=== PATIENT | female | born 1960 | race Caucasian/White ===

== ENCOUNTER 2017-02-02 12:57 | Emergency (ER) | payer OTHER ==
--- NOTE | 2017-02-02 13:45 | ED NURSING NOTES ---
Clinical Report - [facility] [address] [place] [address] 02/02/2017 13:05 Patient: TIGRE CROOKS TRIAGE Triage time 13:12 Feb 02 2017. Acuity: LEVEL 3. Chief Complaint: RIGHT LOWER EXTREMITY PAIN. Alert. No acute distress. MARCOS COMA SCORE: Marcos Coma Scale: 15- eyes open spontaneously (4); best verbal response- oriented x 4 (5); best motor response- obeys commands (6). --13:24 Breanna Harman R.N. 13:12 02/02/17. BP: 150/81. HR: 87. RR: 16. O2 saturation: 97%. Temp: 98.4 F. Pain level now: 06/10. --13:24 Breanna Harman R.N. Weight: 68 kg stated. Height/Length: 71 inches Per Patient. BMI: 20.9. --13:23 Breanna Harman R.N. Medications Tramadol HCL Oral. --13:16 Breanna Harman R.N. Levothyroxine Sodium Oral 137, daily. --13:17 Breanna Harman R.N. Amitriptyline HCl Oral (Tablet 150 mg) 2 tablets, at bedtime. --13:17 Breanna Harman R.N. Sertraline HCl Oral (Tablet 100 mg) 1 tablet, daily. --13:17 Breanna Harman R.N. [place] Carbonate ER Oral (Tablet Extended Release 300 mg), BID. --13:18 Breanna Harman R.N. Allergies Morphine and Related. Penicillins. --13:18 Breanna Harman R.N. Seafood. --13:18 Breanna Harman R.N. Bees. --13:18 Breanna Harman R.N. Wasps. --13:19 Breanna Harman R.N. Mushrooms. --13:19 Breanna Harman R.N. Yellow jackets. --13:19 Breanna Harman R.N. History Arrived by private vehicle. Historian: patient. Accompanied by family. No injury occurred. This occurred just prior to arrival. ( right ankle and knee pain pt states that she needs to get back to [place].). 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 PAST MEDICAL HX: Tetanus status: up-to-date. Immunizations: up-to-date. The patient is post-menopausal. Denies current . SOCIAL HX: Current some days light tobacco smoker (cigarette)- less than 1/2 a pack per day. No alcohol use or drug use. No infectious disease exposure. SELF HARM ASSESSMENT: A self harm assessment was performed. The patient answered "no" to the question "Do you have thoughts of harming or killing yourself?". FALL RISK ASSESSMENT: Fall risk assessment completed. No fall risk identified. NUTRITIONAL RISK ASSESSMENT: The nutritional risk assessment revealed no deficiencies. FUNCTIONAL ASSESSMENT: Functional assessment: no impairments noted. LEARNING NEEDS ASSESSMENT: The learning needs assessment revealed no barriers. ABUSE ASSESSMENT: Abuse assessment: The patient was asked "Do you feel safe in your home?". SKIN INTEGRITY ASSESSMENT: Skin integrity risk assessment completed. No skin integrity risk identified. --13:24 Breanna Harman R.N. PROBLEMS: Breast Cancer. Degenerative Joint Disease. Arthritis. Asthma. Hypertension. Thyroid Disease. Rizzo's Palsy. --13:21 Breanna Harman R.N. ADDITIONAL SURGERIES: Bladder Suspension. . Knee Surgery. Lumpectomy of breast. Shoulder Surgery. Spinal fusion. --13:21 Breanna Harman R.N. Interventions ID band on patient. To room. --13:24 Breanna Harman R.N. PHYSICAL ASSESSMENT Ambulatory to room. GENERAL / NEURO / PSYCH: Oriented X 4. Alert. Appears in no acute distress. EXTREMITIES: Right knee: (pain). Right ankle. Right foot. --13:25 Breanna Harman R.N. NURSING PROGRESS NOTES Patient gowned. Patient identifiers checked. Call light placed in reach. Side rails up x 1. Bed placed in lowest position. Brakes of bed on. --13:25 Breanna Harman R.N. 13:50 02/02/2017 Oxycodone-APAP (Oxycodone-Acetaminophen) PO 5/325 mg Tablets 1 tab given. Allergies verified, confirmed 5 rights and sedative warning given to the patient. --13:51 Breanna Harman R.N. DISPOSITION / DISCHARGE Departure time: 14:55 Feb 02 2017. Condition at departure: improved. No learning barriers present. Discharge instructions provided and reviewed with the patient. Reviewed referral to a primary care physician. Patient verbalized understanding. Written instructions provided in Yi. The patient was discharged home and accompanied by box shook patcher. She left the Emergency Department ambulatory and via private vehicle. Credit Operations Specialist driving. FALL RISK ASSESSMENT: Fall risk assessment completed. No fall risk identified. --14:55 Breanna Harman R.N. 14:51 02/02/17. BP: 134/81. HR: 80. RR: 16. O2 saturation: 96%. Pain level now: 06/10. --14:55 Breanna Harman R.N. Locked/Released at 02/03/2017 12:13 by Breanna Harman R.N.
--- NOTE | 2017-02-02 13:45 | ED CLINICAL REPORT ---
Clinical Report - Physicians/Mid Levels [facility] [address] [place] [address] 02/02/2017 13:05 Patient: TIGRE CROOKS Time Seen: 1323; initial patient contact, initial documentation, patient care assumed. Arrived- By private vehicle. Historian- patient. HISTORY OF PRESENT ILLNESS Chief Complaint: LOWER EXTREMITY PAIN. Severity is described as being severe. The quality is noted to be "pain" and similar to prior episodes. Modifying factors- worsened by standing and walking. Relieved by prescription medication. This started years ago and is still present. Symptoms located in the area of the right knee, right leg, right foot and left knee. The patient has not had redness. No swelling, bladder dysfunction, bowel dysfunction, sensory loss or motor loss. No difficulty walking. ( states she is from [place], [place], and here for a dental appt, but her diesel truck driver got lost, and they missed the appt, she suffers from chronic knee pain and foot pain, and she does not have her pain meds with her, and she is hurting too bad to make the drive back to [place]). Patient denies an injury. Similar symptoms previously: Chronically, as bad. Recent medical care: Not recently seen/assessed. REVIEW OF SYSTEMS No cough, chest pain, difficulty breathing or fever. All systems otherwise negative, except as recorded above. PAST HISTORY See nurses notes. ( PROBLEMS: Breast Cancer. Degenerative Joint Disease. Arthritis. Asthma. Hypertension. Thyroid Disease. Rizzo's Palsy. --13:21 Breanna Harman, R.N. ADDITIONAL SURGERIES: Bladder Suspension. . Knee Surgery. Lumpectomy of breast. Shoulder Surgery. Spinal fusion. --13:21 Breanna Harman, R.N.). SOCIAL HISTORY Light tobacco smoker. No alcohol use or drug use. No recent travel. Visiting locally. FAMILY HISTORY Negative. ADDITIONAL NOTES The nursing notes have been reviewed with agreement regarding the chief complaint, HPI, ROS, PMH and patient medications and allergies. PHYSICAL EXAM Vital Signs: 02/02/2017 13:12 BP: 150/81. HR: 87. RR: 16. O2 saturation: 97%. Temp: 98.4 F. Pain level now: 06/10. Have been reviewed as normal and appear to be correct. Appearance: Alert. Oriented X3. No acute distress. Eyes: Pupils equal, round and reactive to light. Eyes normal inspection. Neck: Normal inspection. Neck supple. Respiratory: No respiratory distress. Skin: Skin intact. Skin warm and dry. Normal skin color. Normal skin turgor. Extremities: Lower extremities exhibit normal ROM. No lower extremity edema. Extremities otherwise negative. Gait: Abnormal gait. Gait not tested due to pain. Neuro: Oriented X 3. No motor deficit. No sensory deficit. PROGRESS AND PROCEDURES Course of Care: pt has barron for frequent narcs, last rx 01/18 tramadol #240, see report for full details. Patient counseled in person regarding the patient's stable condition and diagnosis. Differential Diagnosis: I considered fracture, stress fracture, aseptic necrosis, degenerative joint disease, rheumatoid arthritis, gout, pseudogout, myositis, fasciitis, tendonitis and bursitis as a possible cause of lower extremity pain in this patient. This is a partial list of diagnoses considered. (substance abuse). Above considerations are based on history and physical exam. Differential diagnosis was discussed with patient. Disposition: Discharged home in good and improved condition (13:45). Condition: good and stable. CLINICAL IMPRESSION Chronic right knee, ankle and foot pain. INSTRUCTIONS Warnings: GENERAL WARNINGS: Return or contact your physician immediately if your condition worsens or changes unexpectedly, if not improving as expected, or if other problems arise. Specifically return if problem worsens. Follow-up: Follow up with your doctor in about one week as needed. Call for an appointment. Summary of care provided to patient. Understanding of the discharge instructions verbalized by patient. (Electronically signed by Inna Castro A.R.N.P. 02/02/2017 15:05)
--- NOTE | 2017-02-02 13:45 | ED ORDER SUMMARY ---
..... Patient: TIGRE CROOKS OrderSheet [facility] VisitID: [id number] [address] [place] [address] 56y, F Registration Date/Time: 02/02/2017 ORDER SHEET Weight: 68.0 kg (stated) Allergies: Morphine and Related, Penicillins, Seafood, Bees, Wasps, Mushrooms, Yellow jackets GENERAL ORDERS: MEDICATION ORDERS: Oxycodone-APAP PO 5/325 mg (HIGH ALERT MEDICATION, NOW) (13:45 02/02/2017 MICHAELAivens A.R.N.P.) (13:51 Michael Brownlee.N.) IV FLUIDS: ORDER SHEET NOTES: [Electronically signed by Inna Castro A.R.N.PTorrie (15:05 02/02/2017)] [Electronically signed by Breanna Harman R.N. (12:13 02/03/2017)] [Electronically locked/signed by Breanna Harman R.N. (12:13 02/03/2017)]
--- NOTE | 2017-02-02 13:45 | ED ORDER SUMMARY ---
..... Patient: TIGRE CROOKS OrderSheet [facility] VisitID: [id number] [address] [place] [address] 56y, F Registration Date/Time: 02/02/2017 ORDER SHEET Weight: 68.0 kg (stated) Allergies: Morphine and Related, Penicillins, Seafood, Bees, Wasps, Mushrooms, Yellow jackets GENERAL ORDERS: MEDICATION ORDERS: Oxycodone-APAP PO 5/325 mg (HIGH ALERT MEDICATION, NOW) (13:45 02/02/2017 MICHAELAivens A.R.N.P.) (13:51 Michael Brownlee.N.) IV FLUIDS: ORDER SHEET NOTES: [Electronically signed by Inna Castro A.R.N.PTorrie (15:05 02/02/2017)] [Electronically signed by Breanna Harman R.N. (12:13 02/03/2017)] [Electronically locked/signed by Breanna Harman R.N. (12:13 02/03/2017)]
--- NOTE | 2017-02-02 13:45 | ED CLINICAL REPORT ---
Clinical Report - Physicians/Mid Levels [facility] [address] [place] [address] 02/02/2017 13:05 Patient: TIGRE CROOKS Time Seen: 1323; initial patient contact, initial documentation, patient care assumed. Arrived- By private vehicle. Historian- patient. HISTORY OF PRESENT ILLNESS Chief Complaint: LOWER EXTREMITY PAIN. Severity is described as being severe. The quality is noted to be "pain" and similar to prior episodes. Modifying factors- worsened by standing and walking. Relieved by prescription medication. This started years ago and is still present. Symptoms located in the area of the right knee, right leg, right foot and left knee. The patient has not had redness. No swelling, bladder dysfunction, bowel dysfunction, sensory loss or motor loss. No difficulty walking. ( states she is from [place], [place], and here for a dental appt, but her security patrol driver got lost, and they missed the appt, she suffers from chronic knee pain and foot pain, and she does not have her pain meds with her, and she is hurting too bad to make the drive back to [place]). Patient denies an injury. Similar symptoms previously: Chronically, as bad. Recent medical care: Not recently seen/assessed. REVIEW OF SYSTEMS No cough, chest pain, difficulty breathing or fever. All systems otherwise negative, except as recorded above. PAST HISTORY See nurses notes. ( PROBLEMS: Breast Cancer. Degenerative Joint Disease. Arthritis. Asthma. Hypertension. Thyroid Disease. Rizzo's Palsy. --13:21 Breanna Harman, R.N. ADDITIONAL SURGERIES: Bladder Suspension. . Knee Surgery. Lumpectomy of breast. Shoulder Surgery. Spinal fusion. --13:21 Breanna Harman, R.N.). SOCIAL HISTORY Light tobacco smoker. No alcohol use or drug use. No recent travel. Visiting locally. FAMILY HISTORY Negative. ADDITIONAL NOTES The nursing notes have been reviewed with agreement regarding the chief complaint, HPI, ROS, PMH and patient medications and allergies. PHYSICAL EXAM Vital Signs: 02/02/2017 13:12 BP: 150/81. HR: 87. RR: 16. O2 saturation: 97%. Temp: 98.4 F. Pain level now: 06/10. Have been reviewed as normal and appear to be correct. Appearance: Alert. Oriented X3. No acute distress. Eyes: Pupils equal, round and reactive to light. Eyes normal inspection. Neck: Normal inspection. Neck supple. Respiratory: No respiratory distress. Skin: Skin intact. Skin warm and dry. Normal skin color. Normal skin turgor. Extremities: Lower extremities exhibit normal ROM. No lower extremity edema. Extremities otherwise negative. Gait: Abnormal gait. Gait not tested due to pain. Neuro: Oriented X 3. No motor deficit. No sensory deficit. PROGRESS AND PROCEDURES Course of Care: pt has barron for frequent narcs, last rx 01/18 tramadol #240, see report for full details. Patient counseled in person regarding the patient's stable condition and diagnosis. Differential Diagnosis: I considered fracture, stress fracture, aseptic necrosis, degenerative joint disease, rheumatoid arthritis, gout, pseudogout, myositis, fasciitis, tendonitis and bursitis as a possible cause of lower extremity pain in this patient. This is a partial list of diagnoses considered. (substance abuse). Above considerations are based on history and physical exam. Differential diagnosis was discussed with patient. Disposition: Discharged home in good and improved condition (13:45). Condition: good and stable. CLINICAL IMPRESSION Chronic right knee, ankle and foot pain. INSTRUCTIONS Warnings: GENERAL WARNINGS: Return or contact your physician immediately if your condition worsens or changes unexpectedly, if not improving as expected, or if other problems arise. Specifically return if problem worsens. Follow-up: Follow up with your doctor in about one week as needed. Call for an appointment. Summary of care provided to patient. Understanding of the discharge instructions verbalized by patient. (Electronically signed by Inna Castro A.R.N.P. 02/02/2017 15:05)
--- NOTE | 2017-02-02 13:45 | ED NURSING NOTES ---
Clinical Report - Nurses [facility] [address] [place] [address] 02/02/2017 13:05 Patient: TIGRE CROOKS TRIAGE Triage time 13:12 Feb 02 2017. Acuity: LEVEL 3. Chief Complaint: RIGHT LOWER EXTREMITY PAIN. Alert. No acute distress. MARCOS COMA SCORE: Marcos Coma Scale: 15- eyes open spontaneously (4); best verbal response- oriented x 4 (5); best motor response- obeys commands (6). --13:24 Breanna Harman R.N. 13:12 02/02/17. BP: 150/81. HR: 87. RR: 16. O2 saturation: 97%. Temp: 98.4 F. Pain level now: 06/10. --13:24 Breanna Harman R.N. Weight: 68 kg stated. Height/Length: 71 inches Per Patient. BMI: 20.9. --13:23 Breanna Harman R.N. Medications Tramadol HCL Oral. --13:16 Breanna Harman R.N. Levothyroxine Sodium Oral 137, daily. --13:17 Breanna Harman R.N. Amitriptyline HCl Oral (Tablet 150 mg) 2 tablets, at bedtime. --13:17 Breanna Harman R.N. Sertraline HCl Oral (Tablet 100 mg) 1 tablet, daily. --13:17 Breanna Harman R.N. [place] Carbonate ER Oral (Tablet Extended Release 300 mg), BID. --13:18 Breanna Harman R.N. Allergies Morphine and Related. Penicillins. --13:18 Breanna Harman R.N. Seafood. --13:18 Breanna Harman R.N. Bees. --13:18 Breanna Harman R.N. Wasps. --13:19 Breanna Harman R.N. Mushrooms. --13:19 Breanna Harman R.N. Yellow jackets. --13:19 Breanna Harman R.N. History Arrived by private vehicle. Historian: patient. Accompanied by family. No injury occurred. This occurred just prior to arrival. ( right ankle and knee pain pt states that she needs to get back to [place].). 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 PAST MEDICAL HX: Tetanus status: up-to-date. Immunizations: up-to-date. The patient is post-menopausal. Denies current . SOCIAL HX: Current some days light tobacco smoker (cigarette)- less than 1/2 a pack per day. No alcohol use or drug use. No infectious disease exposure. SELF HARM ASSESSMENT: A self harm assessment was performed. The patient answered "no" to the question "Do you have thoughts of harming or killing yourself?". FALL RISK ASSESSMENT: Fall risk assessment completed. No fall risk identified. NUTRITIONAL RISK ASSESSMENT: The nutritional risk assessment revealed no deficiencies. FUNCTIONAL ASSESSMENT: Functional assessment: no impairments noted. LEARNING NEEDS ASSESSMENT: The learning needs assessment revealed no barriers. ABUSE ASSESSMENT: Abuse assessment: The patient was asked "Do you feel safe in your home?". SKIN INTEGRITY ASSESSMENT: Skin integrity risk assessment completed. No skin integrity risk identified. --13:24 Breanna Harman R.N. PROBLEMS: Breast Cancer. Degenerative Joint Disease. Arthritis. Asthma. Hypertension. Thyroid Disease. Rizzo's Palsy. --13:21 Breanna Harman R.N. ADDITIONAL SURGERIES: Bladder Suspension. . Knee Surgery. Lumpectomy of breast. Shoulder Surgery. Spinal fusion. --13:21 Breanna Harman R.N. Interventions ID band on patient. To room. --13:24 Breanna Harman R.N. PHYSICAL ASSESSMENT Ambulatory to room. GENERAL / NEURO / PSYCH: Oriented X 4. Alert. Appears in no acute distress. EXTREMITIES: Right knee: (pain). Right ankle. Right foot. --13:25 Breanna Harman R.N. NURSING PROGRESS NOTES Patient gowned. Patient identifiers checked. Call light placed in reach. Side rails up x 1. Bed placed in lowest position. Brakes of bed on. --13:25 Breanna Harman R.N. 13:50 02/02/2017 Oxycodone-APAP (Oxycodone-Acetaminophen) PO 5/325 mg Tablets 1 tab given. Allergies verified, confirmed 5 rights and sedative warning given to the patient. --13:51 Breanna Harman R.N. DISPOSITION / DISCHARGE Departure time: 14:55 Feb 02 2017. Condition at departure: improved. No learning barriers present. Discharge instructions provided and reviewed with the patient. Reviewed referral to a primary care physician. Patient verbalized understanding. Written instructions provided in Faroese. The patient was discharged home and accompanied by employment office clerk. She left the Emergency Department ambulatory and via private vehicle. Manuscripts Curator driving. FALL RISK ASSESSMENT: Fall risk assessment completed. No fall risk identified. --14:55 Breanna Harman R.N. 14:51 02/02/17. BP: 134/81. HR: 80. RR: 16. O2 saturation: 96%. Pain level now: 06/10. --14:55 Breanna Harman R.N. Locked/Released at 02/03/2017 12:13 by Breanna Harman R.N.
--- NOTE | 2017-02-03 12:13 | ED DISCHARGE INSTRUCTIONS ---
Patient: TIGRE CROOKS General Instructions [facility] VisitID: [id number] [place] [address] 56y, F Registration Date/Time: 02/02/2017 Chronic right knee, ankle and foot pain. INSTRUCTIONS Warnings: GENERAL WARNINGS: Return or contact your physician immediately if your condition worsens or changes unexpectedly, if not improving as expected, or if other problems arise. Specifically return if problem worsens. Follow-up: Follow up with your doctor in about one week as needed. Call for an appointment. Summary of care provided to patient. Understanding of the discharge instructions verbalized by patient. ADDITIONAL INFORMATION Myofascial Pain Syndrome: Fibrositis Your pain is caused by a state of chronic muscle tension. This condition is called by various names: myofascial pain, fibrositis and trigger point pain. This can also be due to mechanical stress (such as working at a computer terminal for long periods; or work that requires repetitive motions of the arms or hands) or emotional stress (such as problems on the job or in your personal life). Sometimes there is no obvious cause. The pain can occur in the area of the muscle spasm or at a site distant to it. For example, spasm of a neck muscle can cause headache. Spasm of the muscle near the shoulder blade can cause pain shooting down the arm. Home Care: Try to identify the factors that may be causing your problem and change them: If you feel thatemotional stressis a cause of your pain, learn methods to deal more effectively with the stress in your life. These may include regular exercise, muscle relaxation techniques, meditation or simply taking time out for yourself. Consult your doctor or go to a local bookstore and review the many books and tapes available on the subject of stress reduction. If you feel that physical stress is a cause for your pain, try to modify any poor work habits. You may use acetaminophen (Tylenol) or ibuprofen (Motrin, Advil) to control pain, unless another medicine was prescribed. [NOTE: If you have chronic liver or kidney disease or ever had a stomach ulcer or GI bleeding, talk with your doctor before using these medicines.] The use of heat to the muscle (hot compress or heating pad) will be helpful to reduce muscle spasm. Some persons get relief with ice packs. Apply an ice pack (crushed or cubed ice in a plastic bag, wrapped in a towel) for 20 minutes at a time as needed. Use the method that feels best to you. Massaging the trigger point and stretching out the muscleare an important parts of prevention and treatment. Trigger point massage can be done by first applying heat to the area to warm and prepare the muscle. Have someone apply steady thumb pressure directly on the knot in the muscle (the most tender point) for 30 seconds. Release the pressure, then massage the surrounding muscle. Repeat the process, applying more pressure to the trigger point each time. Do this up to the limit of pain. With each treatment, the trigger point should become less tender and the pain should decrease. You can apply local pressure to trigger points in the back by lying on the floor with a tennis ball under the trigger point. Follow Up with your doctor as advised or if not improving within the next week. It may be necessary for you to receive physical therapy if you do not respond to home treatment alone. Get Prompt Medical Attention if any of the following occur: If your trigger point is in the chest muscles, observe for pain that becomes more severe, lasts longer, or spreads into your shoulder/arm, neck or back; you develop trouble breathing, sweating, nausea or vomiting in association with chest pain If you develop weakness or numbness in an extremity If your pain worsens, regardless of its location Osteoarthritis Osteoarthritis (also called Degenerative Joint Disease) is the most common form of arthritis in adults over 50. It is not the same as Rheumatoid Arthritis. The exact cause is not known but may be related to excess wear and tear on the joint over a long period of time. Prior injury to that joint, or repeated stress on a joint can also cause this type of arthritis. Osteoarthritis most often affects the hands, knees, spine and hips (in that order). The most common symptoms are joint stiffness, pain and swelling. Home Care: When a joint is more sore than usual, rest that joint for a day or two. Heat is very helpful. This can be provided by taking hot baths, applying a heating pad for up to 30 minutes at a time. Because symptoms are usually worse in the morning, many patients like to take a hot bath just after awakening to relax the muscle and soothe the joints. Exercise is the most important part of home treatment for osteoarthritis. This prevents the muscles and ligaments around the joint from becoming weak and helps maintain the full range of joint motion. This limits further damage to the joint. If you are overweight, this puts a lot of extra strain on weight-bearing joints of the lower back, hips, knees, feet and ankles. Losing weight will improve your arthritis symptoms in these joints. Talk to your doctor about a safe and effective weight loss program for yourself. Anti-inflammatory medicine such as ibuprofen (Advil, Motrin) or naproxen (Aleve) is often used to treat this condition. If this alone is not helping, your doctor may prescribe a stronger medicine. If narcotic pain medicines have been prescribed, they should be used in addition to anti-inflammatory drugs and only for severe pain. Follow Up with your doctor as advised by our staff. Get Prompt Medical Attention if any of the following occur: Redness or swelling of a painful joint Fever of 100.4F (38C) or higher, or as directed by your healthcare provider Worsening joint pain You have been given the following additional information: Myofascial Pain Syndrome Osteoarthritis (Electronically signed by Inna Castro A.R.N.P. 02/02/2017 15:05)
--- NOTE | 2017-02-03 12:13 | ED MAR SUMMARY ---
..... Medication Administration Record [facility] [address] [place] [address] Patient: TIGRE CROOKS Visit ID: [id number] 56y, F Weight: 68.0 kg Height/Length: 71 in BMI: 20.9 ALLERGIES: Yellow jackets, Mushrooms, Wasps, Bees, Seafood, Penicillins, Morphine and Related Given 13:50 02/02/2017 Breanna Harman R.N. Medication Administered: OXYCODONE-APAP [PO] (OXYCODONE-ACETAMINOPHEN), Dose: 1 tab 5/325 mg Tablets PO. Medication Ordered: Oxycodone-APAP PO 5/325 mg (HIGH ALERT MEDICATION, NOW).
--- NOTE | 2017-02-03 12:13 | ED MED RECONCILIATION SUMMARY ---
Patient: TIGRE CROOKS Medication Reconciliation Report [facility] VisitID: [id number] [place] [address] 56y, F Registration Date/Time: 02/02/2017 Weight: 68.0 kg Height/Length: 71 in. BMI: 20.9 ALLERGIES: Bees, Morphine and Related, Mushrooms, Penicillins, Seafood, Wasps, Yellow jackets The patient's Home Medications are listed below: THE FOLLOWING MEDICATIONS NEED TO BE RECONCILED: Amitriptyline HCl Oral (150 mg) 2 tablets, at bedtime Levothyroxine Sodium Oral 137, daily [place] Carbonate ER Oral (300 mg), BID Sertraline HCl Oral (100 mg) 1 tablet, daily Tramadol HCL Oral The source(s) of the original Home Medication information: Not obtained. The following Medications were given to the patient in the Emergency Department: Oxycodone-APAP [PO] PO 1 tab, administered: 02/02/2017 1:50:00 PM The following Medications were prescribed to the patient: None.
--- NOTE | 2017-02-03 12:13 | ED MAR SUMMARY ---
..... Medication Administration Record [facility] [address] [place] [address] Patient: TIGRE CROOKS Visit ID: [id number] 56y, F Weight: 68.0 kg Height/Length: 71 in BMI: 20.9 ALLERGIES: Yellow jackets, Mushrooms, Wasps, Bees, Seafood, Penicillins, Morphine and Related Given 13:50 02/02/2017 Breanna Harman R.N. Medication Administered: OXYCODONE-APAP [PO] (OXYCODONE-ACETAMINOPHEN), Dose: 1 tab 5/325 mg Tablets PO. Medication Ordered: Oxycodone-APAP PO 5/325 mg (HIGH ALERT MEDICATION, NOW).
--- NOTE | 2017-02-03 12:13 | ED MED RECONCILIATION SUMMARY ---
Patient: TIGRE CROOKS Medication Reconciliation Report [facility] VisitID: [id number] [place] [address] 56y, F Registration Date/Time: 02/02/2017 Weight: 68.0 kg Height/Length: 71 in. BMI: 20.9 ALLERGIES: Bees, Morphine and Related, Mushrooms, Penicillins, Seafood, Wasps, Yellow jackets The patient's Home Medications are listed below: THE FOLLOWING MEDICATIONS NEED TO BE RECONCILED: Amitriptyline HCl Oral (150 mg) 2 tablets, at bedtime Levothyroxine Sodium Oral 137, daily [place] Carbonate ER Oral (300 mg), BID Sertraline HCl Oral (100 mg) 1 tablet, daily Tramadol HCL Oral The source(s) of the original Home Medication information: Not obtained. The following Medications were given to the patient in the Emergency Department: Oxycodone-APAP [PO] PO 1 tab, administered: 02/02/2017 1:50:00 PM The following Medications were prescribed to the patient: None.
== END 2017-02-02 14:56 | disposition home or self-care (01) ==
LOC: ED SRH 12:57
DX: G89.29 Other chronic pain (principal); M25.561 Pain in right knee; M25.571 Pain in right ankle and joints of right foot; I10 Essential (primary) hypertension; Z79.891 Long term (current) use of opiate analgesic; Z79.899 Other long term (current) drug therapy; F17.219 Nicotine dependence, cigarettes, with unspecified nicotine-induced disorders; Z88.0 Allergy status to penicillin